=== PATIENT | male | born 1955 | race Caucasian/White ===

== ENCOUNTER 2019-09-15 01:03 | Emergency (ER) | payer SELFPAY ==
[~2019-09-15] VITALS: Ht 172.7 cm; Wt 93.6 kg
[2019-09-15] MEDS ORDERED: KETOROLAC 30 MG/ML VIAL (J1885) IV ONE (01:45)
[2019-09-15] MEDS ORDERED: LORazepam 2 MG/ML VIAL (J2060) IV ONE (01:45)
[2019-09-15] MEDS ORDERED: NAPR-837 PO (03:39)
[2019-09-15] MEDS ORDERED: CYCL5TAB PO (03:39)
[2019-09-15 04:39] VITALS: BP 127/68
== END 2019-09-15 04:41 | disposition home or self-care (01) ==
LOC: M ED 01:03
DX: M62.838 Other muscle spasm (principal)
CPT/HCPCS: 96374; 96375; 99284; J1885; J2060

== ENCOUNTER → 2021-02-02 | Outpatient (CLI) | payer OTHER ==
[~2021-02-02] MED LIST: CYCL5TAB PO; NAPR-837 PO
--- NOTE | 2021-02-02 08:51 | REP ---
INDICATION: LUMBAGO WITH SCIATICA COMPARISON: None. TECHNIQUE: AP, lateral, bilateral oblique, and coned-down views of the lumbar spine. FINDINGS: Large calcifications in the left upper quadrant suspicious for large renal stones and correlation is required. Alignment and lordosis maintained. Moderate to early advanced multilevel degenerative changes include endplate sclerosis, osteophytosis, disc space narrowing, and facet hypertrophy throughout the lumbosacral spine. No acute fracture/compression injury or subluxation. IMPRESSION: 1. Moderate to early advanced multilevel degenerative spondylosis. 2. Large left renal calculi. <Electronically signed by Basilio Ty > 02/02/21 [id number]
--- NOTE | 2021-02-02 08:55 | REP ---
INDICATION: OSTEOARTHRITIS COMPARISON: None. TECHNIQUE: AP, lateral, bilateral oblique and sunrise views. FINDINGS: Moderate tricompartmental osteoarthritic degenerative changes include periarticular sclerosis, early osteophytosis, and predominately patellofemoral and medial joint space narrowing. No acute fracture or dislocation. No effusion. IMPRESSION: Moderate tricompartmental osteoarthritic degenerative changes. <Electronically signed by Basilio Ty > 02/02/21 [id number]
[2021-02-02 10:58] LABS: ALBUMIN 3.8 GM/DL (3.2-5.2); BILIRUBIN,TOTAL 0.6 MG/DL (0.2-1.0); CALCIUM LEVEL 9.4 MG/DL (8.8-10.2); CHOLESTEROL RISK RATIO 4.301 (<5); CREATININE FOR GFR 1.48 MG/DL (0.70-1.30); GLOMERULAR FILTRATION RATE 50.8 (>49); POTASSIUM SERUM 4.4 MEQ/L (3.5-5.1); TOTAL PROTEIN 7.9 GM/DL (6.4-8.2)
== END ==
LOC: M WUC 08:11
PROVIDERS: ATTEND Family Medicine
DX: M47.816 Spondylosis without myelopathy or radiculopathy, lumbar region (principal); M17.12 Unilateral primary osteoarthritis, left knee; M54.42 Lumbago with sciatica, left side; M54.41 Lumbago with sciatica, right side

== ENCOUNTER → 2021-02-06 | Outpatient (CLI) | payer OTHER ==
--- NOTE | 2021-02-06 14:00 | REP ---
INDICATION: PAIN LEFT KNEE. COMPARISON: None. TECHNIQUE: Single frontal weight-bearing view of the right and left knee. FINDINGS: Left knee demonstrates near complete loss of the medial joint space compartment along with generalized cortical irregularity and very early medial spurring. Right knee demonstrates moderate medial joint space narrowing along with increased sclerosis to the tibial plateau and mild cortical irregularities. IMPRESSION: Degenerative changes (left greater than right). <Electronically signed by Basilio Ty > 02/06/21 [id number]
== END ==
LOC: M SOG 08:28
PROVIDERS: ATTEND Orthopaedic Surgery Adult Reconstructive Orthopaedic Surgery
DX: M17.0 Bilateral primary osteoarthritis of knee (principal)

== ENCOUNTER → 2021-02-15 | Outpatient (CLI) | payer MEDICARE, OTHER ==
--- NOTE | 2021-02-15 08:44 | REP ---
INDICATION: KIDNEY STONES COMPARISON: None TECHNIQUE: Real time headley scale ultrasound examination using curved array transducer. FINDINGS: Bilateral kidneys are normal in contour, size, echogenicity, and reniform shape. Mildly increased central sinus fat suggests age-related renal disease. Right kidney measures 11.0 x 5.3 x 4.5 cm and is without hydronephrosis, nephrolithiasis, cystic or renal mass lesion. Left kidney measures 12.4 x 5.1 x 5.5 cm and demonstrates moderate hydronephrosis without nephrolithiasis, cystic or renal mass lesion. Bladder is unremarkable. Prostate measures 3.8 x 3.7 x 3.6 cm (26 cc). IMPRESSION: Chronic medical renal disease noted. Moderate left-sided hydronephrosis without obvious nephrolithiasis or obstruction noted by ultrasound. <Electronically signed by Basilio Ty > 02/15/21 [id number]
== END ==
LOC: M RAD 07:33
PROVIDERS: ATTEND Family Medicine
DX: N13.30 Unspecified hydronephrosis (principal); N18.9 Chronic kidney disease, unspecified

== ENCOUNTER → 2021-04-14 | Outpatient (CLI) | payer OTHER ==
[2021-04-14 15:47] LABS: CALCIUM LEVEL 9.3 MG/DL (8.8-10.2); CREATININE FOR GFR 1.41 MG/DL (0.70-1.30); GLOMERULAR FILTRATION RATE 53.7 (>49); POTASSIUM SERUM 4.7 MEQ/L (3.5-5.1)
== END ==
LOC: M PLALAB 12:53
PROVIDERS: ATTEND Nurse Practitioner Family
DX: N13.30 Unspecified hydronephrosis (principal)

== ENCOUNTER → 2021-04-26 | Outpatient (CLI) | payer OTHER ==
[~2021-04-26] MED LIST changes: +ISOVUE-370 76% 100ML VIAL ONE
--- NOTE | 2021-04-26 12:20 | REP ---
INDICATION: HYDRONEPHROSIS. COMPARISON: None. TECHNIQUE: CT abdomen and pelvis performed without IV contrast. CT abdomen pelvis performed with IV contrast as well, following intravenous administration of 75 cc of Isovue 370. Sagittal, coronal and 3D MIP reconstruction images are performed. FINDINGS: CT abdomen/pelvis: Lung bases show dependent atelectatic changes and some minimal fibrotic appearance without effusion or infiltrate. Heart not grossly enlarged. There is no pericardial thickening or effusion. No hiatal hernia. Stomach unremarkable. The liver, spleen gallbladder pancreas and adrenal glands are unremarkable. Small bowel loops abdominal course of the colon without acute finding. The right kidneys show no stone, mass, cyst or hydronephrosis. There is a extrarenal pelvis which is small the ureter shows normal course to the bladder without dilatation or stone. The left kidney shows some moderate hydronephrosis and a 2 small calculi in the 2-4 mm range in the lower pole and 1 2 mm interpolar calculus. There is a large extra renal pelvis noted and within that pelvis is group of stones in aggregate 4.1 x 2.7 cm the largest is 2.6 cm. This fills much of that extra renal pelvis. 15 minute delayed images there is contrast in both ureters to the level of the the pelvis. Below the extrarenal pelvis on the left there was no ureteral dilatation the pre contrast images show no ureteral stone on either side. There is no stone, mass or wall thickening in the bladder. Bone windows showed lumbar and thoracic spondylosis with some lower lumbar facet arthropathy. Visualized ribs grossly intact. The sacrum, SI joints pelvis and hips show some degenerative changes but no fracture or destructive lesions. The 3D surface renderings for CT urogram show the extrarenal pelvis on that left side with some moderate hydronephrosis and the ureter arising from it anteriorly and with normal caliber. Pelvic images show no evidence of colonic diverticulosis or diverticulitis in the deep pelvis. Small bowel loops are unremarkable. Appendix is seen and is normal. There is no ventral hernia or pathologic inguinal adenopathy. There is omental fat in the inguinal canals without bowel herniation. IMPRESSION: 1. Multiple stones in a conglomerate stone mass in the large extrarenal pelvis on the left causing moderate hydronephrosis largest stone is 2.6 cm and overall maximum diameter 4.1 cm. Represents a UPJ type obstruction with normal caliber ureter which arises from anterior not inferior margin of the extrarenal pelvis. I wish to note that the ultrasound 2 months ago did not demonstrate stones but did show hydronephrosis. This is a perfect example of the effect of abundant perinephric and retroperitoneal fat obscuring the extrarenal pelvis contents on ultrasound. If it had been filled with urine, it would have been seen but the stones are not visible due to the physical properties of sound wave propagation in that setting. 2. Left kidney show no atrophy. There are few other small stones in the 2-4 mm range within the interpolar lower pole region of the kidney. The right kidney was unremarkable the right ureter normal. Bladder without stone or other finding. 3. Otherwise negative CT <Electronically signed by Domenic Pereira > 04/26/21 [id number]
== END ==
LOC: M PLAIMG 10:37
PROVIDERS: ATTEND Nurse Practitioner Family
DX: N20.0 Calculus of kidney (principal); N13.30 Unspecified hydronephrosis
CPT/HCPCS: 74178; Q9967

== ENCOUNTER → 2021-05-09 | Outpatient (CLI) | payer OTHER ==
[~2021-05-09] MED LIST changes: -ISOVUE-370 76% 100ML VIAL ONE
--- NOTE | 2021-05-09 12:33 | REP ---
INDICATION: N20.0 KIDNEY STONES Z01.818 PRE OP TESTING. COMPARISON: None. TECHNIQUE: PA and lateral FINDINGS: The superior mediastinal structures are midline. The cardiac silhouette is unremarkable in size, shape, and position. The diaphragmatic surfaces of the lungs are regular, and the costophrenic angles are clear. The pulmonary hanson are clear. The imaged osseous structures are intact. IMPRESSION: There is no acute cardiopulmonary disease. <Electronically signed by Ren Gates > 05/09/21 [id number]
[2021-05-09 14:58] LABS: BASO # 0.1 10^3/uL (0.0-0.2); BASO % 1.1 % (0.0-1.0); EOS # 0.4 10^3/uL (0.0-0.5); EOS % 4.6 % (0.0-3.0); HEMOGLOBIN 15.7 g/dl (13.5-17.5); LYMPH # 2.2 10^3/uL (1.5-5.0); LYMPH % 24.5 % (24.0-44.0); MEAN CORPUSCULAR HEMOGLOBIN 33.1 pg (27.0-33.0); MEAN CORPUSCULAR HGB CONC 33.4 g/dl (32.0-36.5); MEAN CORPUSCULAR VOLUME 98.9 fl (80.0-96.0); MONO # 1.1 10^3/uL (0.0-0.8); MONO % 12.3 % (2.0-8.0); NEUTROPHILS # 5.2 10^3/uL (1.5-8.5); NEUTROPHILS % 57.1 % (36.0-66.0); PLATELET COUNT, AUTOMATED 241 10^3/uL (150-450); RED BLOOD COUNT 4.75 10^6/uL (4.30-6.10); WHITE BLOOD COUNT 9.1 10^3/uL (4.0-10.0)
[2021-05-09 15:04] LABS: APPEARANCE, URINE CLEAR (CLEAR); BACTERIA, URINE AUTO NEGATIVE (NEGATIVE); BILIRUBIN, URINE AUTO NEGATIVE (NEGATIVE); BLOOD, URINE BLOOD 1+ (NEGATIVE); COLOR, URINE STRAW (YELLOW); GLUCOSE, URINE (UA) AUTO NEGATIVE (NEGATIVE); KETONE, URINE AUTO NEGATIVE (NEGATIVE); LEUKOCYTE ESTERASE, URINE AUTO NEGATIVE (NEGATIVE); NITRITE, URINE AUTO NEGATIVE (NEGATIVE); PROTEIN, URINE AUTO NEGATIVE (NEGATIVE); RBC, URINE AUTO 1 /HPF (0-3); SPECIFIC GRAVITY URINE AUTO 1.003 (1.002-1.035); SQUAMOUS EPITHELIAL CELL UR AU 1 /HPF (0-6); UROBILINOGEN, URINE AUTO 0.2 mg/dL (0.0-2.0); WBC, URINE AUTO 0 /HPF (0-3)
[2021-05-09 15:10] LABS: INR 0.88; PROTHROMBIN TIME 12.4 SECONDS (12.7-14.5)
[2021-05-09 15:11] LABS: PARTIAL THROMBOPLASTIN TIME 27.2 SECONDS (25.9-37.0)
[2021-05-09 15:20] LABS: CALCIUM LEVEL 9.6 MG/DL (8.8-10.2); CREATININE FOR GFR 1.43 MG/DL (0.70-1.30); GLOMERULAR FILTRATION RATE 52.8 (>49); POTASSIUM SERUM 4.3 MEQ/L (3.5-5.1)
== END ==
LOC: M WUC 11:57
PROVIDERS: ATTEND Nurse Practitioner Family
DX: N20.0 Calculus of kidney (principal); Z01.818 Encounter for other preprocedural examination

== ENCOUNTER → 2021-05-15 | Outpatient (CLI) | payer OTHER ==
[~2021-05-15] MED LIST changes: +ATOR40TA75 PO; +OXYC1TAB23 PO; +TIZA1TAB12 PO
== END ==
LOC: M LABSMTC 08:58
PROVIDERS: ATTEND Anesthesiology
DX: Z01.818 Encounter for other preprocedural examination (principal)

== ENCOUNTER → 2021-05-15 | Outpatient (CLI) | payer OTHER ==
--- NOTE | 2021-05-15 16:15 | ECGEPIP ---
[facility] Test Date: 2021-05-15 Pat Name: NELA NEGRETE Department: Room: - Gender: Male Peer Tutor: WILLA : 1955 Requested By: Dejon LAZAR Order Number: [id number] Reading MD: Leonidas Mitchell Measurements Intervals [place] Rate: 83 P: 54 CA: 152 QRS: -5 QRSD: 88 T: 75 QT: 358 QTc: 420 Interpretive Statements Normal sinus rhythm Poor R wave progression. No prior ECG available for comparison at the time of interpretation. Electronically Signed on 05-15-2021 16:15:12 EDT by Leonidas Mitchell
== END ==
LOC: M EKG 07:09
PROVIDERS: ATTEND Nurse Practitioner Family
DX: Z01.818 Encounter for other preprocedural examination (principal); N20.0 Calculus of kidney
CPT/HCPCS: 93005; U0003

== ENCOUNTER 2021-05-19 11:00 | Observation (INO) | payer OTHER ==
[~2021-05-19] VITALS: Ht 172.7 cm; Wt 101.2 kg
[~2021-05-19 11:00] MED LIST changes: +LR 1,000 ML IV ONE; +ceFAZolin SOD 2 GM in IV 1 EA IV ONE
[2021-05-26] MEDS ORDERED: LR 1,000 ML IV ONE (06:00)
[2021-05-26] MEDS ORDERED: LIDOCAINE 1% MDV 20ML VIAL SQ PRN (06:00)
[2021-05-26] MEDS ORDERED: ceFAZolin SOD 2 GM in IV 1 EA IV ONE (06:00)
[2021-05-26] MEDS ORDERED: IBUP200C33 PO (09:39)
[2021-05-26] MEDS ORDERED: CONRAY-60 60% 50ML VIAL (Q9961) As Ordered ONE ×3 (09:59→13:25)
[2021-05-26] MEDS ORDERED: dexameTHASONE 4 MG/ML 1ML VIAL (J1100 PER 1MG) As Ordered ONE (11:21)
[2021-05-26] MEDS ORDERED: MIDAZOLAM INJ 2MG/2ML VIAL (J2250 PER 1MG) As Ordered ONE (11:21)
[2021-05-26] MEDS ORDERED: LIDOCAINE 2% 100MG/5ML SDV (FOR ANES.) As Ordered ONE (11:21)
[2021-05-26] MEDS ORDERED: propofoL 200 MG/20 ML VIAL As Ordered ONE (11:21)
[2021-05-26] MEDS ORDERED: ROCURONIUM BROMIDE 50 MG/5 ML VIAL As Ordered ONE (11:21)
[2021-05-26] MEDS ORDERED: fentaNYL 250 MCG/5 ML INJECTION (J3010) As Ordered ONE (11:21)
[2021-05-26] MEDS ORDERED: ONDANSETRON 4MG/2ML VIAL As Ordered ONE (11:21)
[2021-05-26] MEDS ORDERED: PHENYLephrine 500MCG 5ML (100MCG/ML) SYRINGE As Ordered ONE (11:33)
[2021-05-26] MEDS ORDERED: SUGAMMADEX SODIUM 500 MG/5 ML VIAL (BRIDION) As Ordered ONE (11:33)
[2021-05-26] MEDS ORDERED: ACETAMINOPHEN 1000MG 100ML IV BTL (OFIRMEV) (J0131 PER 10MG) As Ordered ONE (12:31)
[2021-05-26] MEDS ORDERED: ONDANSETRON 4MG/2ML VIAL IV PRN ×2 (14:10→14:50)
--- NOTE | 2021-05-26 14:40 | REP ---
INDICATION: LEFT PERCUTANEUS NEPHROLITHOTOMY. COMPARISON: None. TECHNIQUE: Four views. 66.3 seconds of fluoroscopy time is reported.. FINDINGS: A sequence of 4 last image hold fluoroscopically obtained spot radiographs document percutaneous nephrolithotomy procedure. IMPRESSION: Procedural imaging. <Electronically signed by Ken Zaman > 05/26/21 [id number]
[2021-05-26 14:49] LABS: HEMATOCRIT 44.5 % (42.0-52.0); HEMOGLOBIN 14.7 g/dl (13.5-17.5); MEAN CORPUSCULAR HEMOGLOBIN 32.5 pg (27.0-33.0); MEAN CORPUSCULAR VOLUME 98.2 fl (80.0-96.0); PLATELET COUNT, AUTOMATED 208 10^3/uL (150-450); RED BLOOD COUNT 4.53 10^6/uL (4.30-6.10)
[2021-05-26] MEDS ORDERED: LR 1,000 ML IV SCH (14:50)
[2021-05-26] MEDS ORDERED: fentaNYL 100 MCG/2 ML INJECTION (J3010) IV PRN (14:50)
[2021-05-26] MEDS ORDERED: oxyCODONE 5MG TAB PO PRN (14:50)
[2021-05-26 15:11] LABS: ALBUMIN 3.2 GM/DL (3.2-5.2); BILIRUBIN,TOTAL 0.9 MG/DL (0.2-1.0); CALCIUM LEVEL 8.6 MG/DL (8.8-10.2); CREATININE FOR GFR 1.69 MG/DL (0.70-1.30); GLOMERULAR FILTRATION RATE 43.6 (>49); POTASSIUM SERUM 4.1 MEQ/L (3.5-5.1); TOTAL PROTEIN 7.5 GM/DL (6.4-8.2)
--- NOTE | 2021-05-26 15:48 | ROOPDOC ---
[facility] Report Of Operation Report of Operation DATE OF PROCEDURE: 05/26/21 PREPROCEDURE DIAGNOSES: [left renal stones]. POSTPROCEDURE DIAGNOSES: [same]. PROCEDURE PERFORMED: [left pcnl with rigid nephroscope and u/s lithotripsy and basket stone extraction, fluoroscopy, antegrade nephrostogram, nephrostomy tube removed and replaced, flexible cystoscopy, retrograde pyelogram, stent placement (left side) ]. SURGEON: [Jefe Machuca, VEGETABLE WORKER: [none], ANESTHESIA: [general]. ESTIMATED BLOOD LOSS: Approximately [20] mL. COMPLICATIONS: [none]. REMARKS: [66yo wm. Found to have very large left renal stones. Options discussed. Pcnl opted for. Informed consent obtained. Risks discussed and include infection, pain, bleeding, scarring, failure of surgery, need for more surgery, injury to gu tract or bowel or lung or some other normal tissue and others]. FINDINGS: SPECIMENS REMOVED: [stone] PROCEDURE NOTE: . DESCRIPTION OF PROCEDURE: [Met with pt in preop area and surgery again discussed. Questions answered. Pt wished to proceed. Pt brought to OR room. Supine position on table. Well padded. General anesthesia secured. Urethral catheter placed using sterile technique. Postioning then prone. Much care taken. Chest rolls used and pillow under knees. Well padded. Secured in place. Prepped and draped in sterile fashion. Time out performed. Surgery done under coverage of iv antibiotic. Left nephroureteral catheter already in place. Placed yesterday at [facility]. Wire passed through catheter into bladder after which catheter removed. Done under fluoroscopy. Fluoroscopy used intermittently throughout. With help from dual lumen catheter, second wire passed into bladder. Stones in kidney easily seen. Tract dilated with balloon under fluoroscopy using one of the wires and 30fr sheath then placed. Both wires in place at this time , one through sheath and one outside sheath. Rigid nephroscopy performed. Stones encountered. U/s lithotripsy performed. It took quite a while to fragment all the stones because of their size and number. A basket grasper was used to remove fragments. Easily 50 fragments were removed. A fragment was saved and handed off. Once satisfied with having fragmented and basketed all stones (using both direct vision and fluoroscopy), contrast was injected through the sheath using a catheter tip syringe to obtain a nephrostogram. Calyces and pelvis opacified and noted to be dilated. Before and after fluoroscopy images much different. Stones easily seen and then no distinct stone. At this point, access was lost. Wire through sheath came out earlier. Now wire outside sheath accidentally came out. I tried to pass a wire into kidney and down ureter through the sheath under fluoroscopy but was unsuccessful. I tried to pass a wire through upj and down ureter under direct vision with nephroscope but again was unsuccessful. Couldn't find upj. I wanted a stent in place so ultimately I did flexible cystoscopy with stent placement under fluoroscopy with pt supine on the bed. I did a retrograde at the time. No extravasation and pelvis and calyces dilated. Wire was passed up ureter into kidney without a problem. Before changing pt's position, I placed a nephrostomy tube under fluoroscopy. I injected contrast through the tube to confirm position. I used a 20fr [place] catheter. Few cc's in the balloon. Secured tube to skin with suture. After this, positioning was changed to supine. I removed urethral catheter and placed a stent as described above. Urethral catheter replaced. Pt tolerated all well. Nephrostomy tube site cleaned and dried and sterile dressing placed. RANJIT MACHUCA MD May 26, 2021 15:48
[2021-05-26 16:00] VITALS: BP 149/85
[2021-05-26] MEDS: D5W/0.45% SODIUM CHLORIDE 1,000 ML IV SCH ×2 (16:16→23:46)
[2021-05-26] MEDS: CIPROFLOXACIN 400 MG in IV 1 EA IV SCH (16:16)
[2021-05-26 16:30] VITALS: BP 160/80
[2021-05-26 17:00] VITALS: BP 153/78
[2021-05-26 18:00] VITALS: BP 154/75
[2021-05-26] MEDS: NORCO, ANEXSIA 5/325MG TABLET (HYDROcodone/ACETAMINOPHEN) PO PRN (18:21)
[2021-05-26 19:00] VITALS: BP_SYST 143; BP_SYST 152; BP_DIAS 73; BP_DIAS 82
[2021-05-26] MEDS: HYDROmorphone HCL 2 MG/ML 1ML VIAL IV PRN ×2 (19:50→23:46)
[2021-05-26 20:00] VITALS: BP 131/63
[2021-05-27 00:46] VITALS: BP 133/73
[2021-05-27] MEDS: CIPROFLOXACIN 400 MG in IV 1 EA IV SCH (03:45)
[2021-05-27 05:57] VITALS: BP 133/73
[2021-05-27] MEDS: NORCO, ANEXSIA 5/325MG TABLET (HYDROcodone/ACETAMINOPHEN) PO PRN (06:39)
[2021-05-27] MEDS: D5W/0.45% SODIUM CHLORIDE 1,000 ML IV SCH (06:39)
[2021-05-27 08:19] VITALS: BP 146/70
[2021-05-27] MEDS: HYDROmorphone HCL 2 MG/ML 1ML VIAL IV PRN (09:26)
[2021-05-27 10:00] VITALS: BP 135/71
[2021-05-27] MEDS ORDERED: HYDR-3713 PO ×2 (10:38→11:02)
[2021-05-27] MEDS ORDERED: BACT800T5 PO ×2 (10:38→11:02)
[2021-05-27] MEDS ORDERED: OXYB5TAB10 PO ×2 (10:38→11:02)
[2021-05-27] MEDS ORDERED: PYRI1TAB5 PO ×2 (10:38→11:02)
--- NOTE | 2021-05-27 11:06 | IPNPDOC ---
Date Seen The patient was seen on 05/27/21. Progress Note pt seen and examined doing well no events overnight avss blood tinged urine neph and urethral both draining well belly soft heart reg neph removed urethral removed home today Bactrim, oxybutynin, Pyridium and pain med discharge instructions discussed VS, I&O, 24H, Fishbone Vital Signs/I&O Vital Signs Date Time Temp Pulse Resp B/P (MAP) Pulse Ox O2 Delivery O2 Flow Rate FiO2 05/27/21 10:00 98.3 86 17 135/71 (92) 93 Room Air 05/27/21 05:57 2.0 I&O- Last 24 Hours up to 6 AM 05/27/21 06:00 Intake Total 2205 ml Output Total 2820 ml Balance -615 ml Laboratory Data 24H LABS Laboratory Tests 2 05/26/21 14:32: Nucleated Red Blood Cells % (auto) 0.0, Anion Gap 3L, Glomerular Filtration Rate 43.6L, Calcium Level 8.6L, Total Bilirubin 0.9, Aspartate Amino Transf (AST/SGOT) 21, Alanine Aminotransferase (ALT/SGPT) 49, Alkaline Phosphatase 78, Total Protein 7.5, Albumin 3.2, Albumin/Globulin Ratio 0.7 CBC/BMP Laboratory Tests 05/26/21 14:32 RANJIT MACHUCA MD May 27, 2021 11:06
--- NOTE | 2021-05-27 11:13 | DS.PDOC ---
Discharge Summary General Date of Admission May 26, 2021 at 09:00 Date of Discharge 05/27/21 Attending Physician: RANJIT MACHUCA MD Discharge Summary PROCEDURES PERFORMED DURING STAY: [left pcnl and cysto with stent placement]. ADMITTING DIAGNOSES: 1. [left renal stones]. DISCHARGE DIAGNOSES: 1. [same]. COMPLICATIONS/CHIEF COMPLAINT: Nephrolithiasis. HISTORY OF PRESENT ILLNESS: [Pain left flank. Found to have significant stone burden left kidney. Surgery arranged.]. HOSPITAL COURSE: [Surgery and postop uneventful]. DISCHARGE MEDICATIONS: Please see below. ALLERGIES: Please see below. alert appropriate avss heart reg belly soft urine blood tinged LABORATORY DATA: Please see below. IMAGING: PROGNOSIS: ACTIVITY nothing strenuous for 2wk DIET: [regular] DISCHARGE PLAN: DISPOSITION: home DISCHARGE INSTRUCTIONS: 1. [nothing strenuous 2wk can shower but no bathing dressing to flank and change daily and as needed regular diet resume home meds except ibuprofen no blood thinners for 1wk Bactrim, oxybutynin, Pyridium and pain med sent to pharmacy expect blood in urine lots of fluids office will call pt about cysto with stent removal in the office, has appt 06/07/21 already]. ITEMS TO FOLLOWUP ON ON OUTPATIENT: 1. . DISCHARGE CONDITION: [Stable]. TIME SPENT ON DISCHARGE: [30] minutes. Vital Signs/I&Os Vital Signs Date Time Temp Pulse Resp B/P (MAP) Pulse Ox O2 Delivery O2 Flow Rate FiO2 05/27/21 10:00 98.3 86 17 135/71 (92) 93 Room Air 05/27/21 05:57 2.0 I&O- Last 24 Hours up to 6 AM 05/27/21 06:00 Intake Total 2205 ml Output Total 2820 ml Balance -615 ml Laboratory Data Labs 24H Laboratory Tests 2 05/26/21 14:32: Nucleated Red Blood Cells % (auto) 0.0, Anion Gap 3L, Glomerular Filtration Rate 43.6L, Calcium Level 8.6L, Total Bilirubin 0.9, Aspartate Amino Transf (AST/SGOT) 21, Alanine Aminotransferase (ALT/SGPT) 49, Alkaline Phosphatase 78, Total Protein 7.5, Albumin 3.2, Albumin/Globulin Ratio 0.7 CBC/BMP Laboratory Tests 05/26/21 14:32 Discharge Medications Scheduled Atorvastatin Calcium (Atorvastatin Calcium) 40 Mg Tablet, 40 MG PO DAILY, (Reported) Oxybutynin Chloride (Oxybutynin Chloride) 5 Mg Tablet, 1 TAB PO BID for urinary discomfort Oxybutynin Chloride (Oxybutynin Chloride) 5 Mg Tablet, 1 TAB PO BID for urinary discomfort Phenazopyridine HCl (Pyridium) 200 Mg Tablet, 1 TAB PO BID for urinary discomfort Phenazopyridine HCl (Pyridium) 200 Mg Tablet, 1 TAB PO BID for urinary discomfort Sulfamethoxazole/Trimethoprim (Bactrim Ds Tablet) 1 Each Tablet, 1 TAB PO BID Sulfamethoxazole/Trimethoprim (Bactrim Ds Tablet) 1 Each Tablet, 1 TAB PO BID Tizanidine HCl (Tizanidine HCl) 2 Mg Tablet, 2 MG PO ASDIRECTED, (Reported) Scheduled PRN Hydrocodone/Acetaminophen (Hydrocodone-Acetamin 5-325 mg) 1 Each Tablet, 1 TAB PO Q6H PRN for pain Hydrocodone/Acetaminophen (Hydrocodone-Acetamin 5-325 mg) 1 Each Tablet, 1 TAB PO Q6H PRN for pain Allergies Coded Allergies: No Known Allergies (Unverified , 05/15/21) RANJIT MACHUCA MD May 27, 2021 11:13
[2021-06-01 12:08] LABS: CA Oxalate Dihy 30 % (.); Ca Ox Monohydrate 70 % (.); Size 17x9 mm (.)
== END 2021-05-27 12:17 | disposition home or self-care (01) ==
LOC: UNDOADMIN 05-26 09:00 → M OR 05-26 09:00 → EDSTATUS 05-26 10:30 → M OR 05-26 16:00 → M MS5PR 05-26 16:00 → UNDODISIN 05-27 12:17
PROVIDERS: ADMIT Urology; ATTEND Urology
DX: N20.0 Calculus of kidney (principal); E78.00 Pure hypercholesterolemia, unspecified; M17.0 Bilateral primary osteoarthritis of knee; R06.83 Snoring; Z79.899 Other long term (current) drug therapy; Z79.891 Long term (current) use of opiate analgesic; Z79.2 Long term (current) use of antibiotics
CPT/HCPCS: 36415; 50081; 50435; 52332; 76000; 80053; 82365; 85027; 86850; 86900; 86901; 88300; C1769; C1887; C2617; G0378; J0131; J0690; J0744; J1100; J1170; J2250; J2370; J2405; J3010; Q9961

== ENCOUNTER → 2021-05-22 | Outpatient (CLI) | payer OTHER ==
[~2021-05-22] MED LIST changes: -LR 1,000 ML IV ONE; -ceFAZolin SOD 2 GM in IV 1 EA IV ONE
== END ==
LOC: M LABSMTC 09:01
PROVIDERS: ATTEND Anesthesiology
DX: Z01.812 Encounter for preprocedural laboratory examination (principal); Z20.822 Contact with and (suspected) exposure to COVID-19

== ENCOUNTER → 2021-08-10 | Outpatient (CLI) | payer OTHER ==
[~2021-08-10] MED LIST changes: +BACT800T5 PO; +HYDR-3713 PO; +IBUP200C33 PO; +OXYB5TAB10 PO; +PYRI1TAB5 PO
--- NOTE | 2021-08-10 09:03 | REP ---
INDICATION: RETAINED URETERAL STENT. COMPARISON: None. TECHNIQUE: An AP view of the abdomen was obtained. FINDINGS: Moderately extensive degenerative changes are seen in the thoracolumbar spine and both hips. Multiple calcifications are seen in the region of the left kidney and are presumed to be stones in the left kidney and probably the left renal pelvis. No ureteral stent is identified. No other significant abnormality is appreciated IMPRESSION: No ureteral stent is appreciated. 2. Multiple stones in the region of the left kidney and left renal pelvis. 3. Degenerative changes of the thoracolumbar spine and both hips. <Electronically signed by Donell Solis > 08/10/21 [id number]
== END ==
LOC: M PLAIMG 08:29
PROVIDERS: ATTEND Urology
DX: Z96.0 Presence of urogenital implants (principal); N20.0 Calculus of kidney; M51.34 Other intervertebral disc degeneration, thoracic region